=== PATIENT | female | born 1960 | race Caucasian/White ===

== ENCOUNTER 2018-04-15 13:22 | Outpatient (CLI) | payer OTHER ==
--- NOTE | 2018-04-19 15:14 | Mammography Report ---
DIGITAL SCREENING MAMMOGRAM: 04/15/2018 CLINICAL INDICATION: A 57-year-old for screening. COMPARISON: 12/2015, 10/2014, 09/2013, 09/2011, 08/2010. TECHNIQUE: Routine CC and MLO projections as well as bilateral laterally exaggerated craniocaudal views were obtained of the breasts. FINDINGS: The breasts again demonstrate heterogeneously dense fibroglandular parenchyma bilaterally. Punctate, typically benign calcifications are present. No suspicious masses, clustered microcalcifications, or regions of architectural distortion are identified. IMPRESSION: BENIGN FINDINGS. RECOMMENDATION: Routine annual screening unless otherwise clinically indicated. BI-RADS CATEGORY 2 - BENIGN FINDINGS. STANDARD QUALIFYING STATEMENTS: 1. This examination was reviewed with the aid of Computer-Aided Detection (CAD). 2. A negative or benign imaging report should not delay biopsy if clinically suspicious findings are present. Consider surgical consultation if warranted. More than 5% of cancers are not identified by imaging. 3. Dense breasts may obscure an underlying neoplasm. TD: 04/19/2018 15:08
== END 2018-04-15 13:23 | disposition home or self-care (01) ==
LOC: DI.N 13:22
PROVIDERS: ATTEND Physician Assistant
DX: Z12.31 Encounter for screening mammogram for malignant neoplasm of breast (principal)
CPT/HCPCS: 77067

== ENCOUNTER 2020-09-23 10:15 | Outpatient (CLI) | payer OTHER | END 2020-09-23 10:16 | disposition home or self-care (01) | LOC: COV 10:15 | PROVIDERS: ATTEND Family Medicine | DX: R50.9 Fever, unspecified (principal); M79.10 Myalgia, unspecified site; Z20.828 Contact with and (suspected) exposure to other viral communicable diseases ==

== ENCOUNTER 2020-12-02 09:59 | Outpatient (CLI) | payer OTHER | END 2020-12-02 10:00 | disposition home or self-care (01) | LOC: COV 09:59 | PROVIDERS: ATTEND Family Medicine | DX: R50.9 Fever, unspecified (principal); M79.10 Myalgia, unspecified site; R43.8 Other disturbances of smell and taste; R11.2 Nausea with vomiting, unspecified; Z20.822 Contact with and (suspected) exposure to COVID-19 ==